=== PATIENT | female | born 1930 | race Hispanic/Latino ===

== ENCOUNTER 2017-06-05 10:07 | Inpatient (IN) | payer MEDICARE ==
[~2017-06-05] VITALS: Ht 152.4 cm; Wt 63.5 kg
[~2017-06-05 10:07] MED LIST: ALEN70TA47 PO; ALLO100T PO; CARV6.25 PO; CHOL50004 PO; DOXY100T2 PO; FURO20TA4 PO; LISI2.5T2 PO; MAGN400T29 PO; MULT-1258 PO; OMEG1CAP43 PO; POTA10CA44 PO; SPIR25TA PO; THYR15TA9 PO; UBID50TA3 PO
[2017-06-05 10:56] LABS: BASOPHILS % (AUTO) 1.2 % (0.0-5.0); EOSINOPHILS % (AUTO) 6.2 % (0.0-8.0); HEMATOCRIT 30.1 % (36-48); LYMPHOCYTES % (AUTO) 22.4 % (21.0-51.0); MEAN CORPUSCULAR HEMOGLOBIN 35.6 pg (27.0-33.0); MEAN CORPUSCULAR HGB CONC 35.3 g/dL (32.0-36.0); MEAN CORPUSCULAR VOLUME 100.7 fL (79-99); NEUTROPHILS % (AUTO) 59.2 % (40.0-77.0); PLATELET COUNT (AUTO) 146 K/uL (130-400); RED BLOOD CELL COUNT(AUTO) 2.99 MIL/uL (4.00-5.50); RED CELL DISTRIBUTION WIDTH 14.3 % (11.0-15.5)
[2017-06-05 11:42] LABS: INR 0.96 (0.85-1.15); PARTIAL THROMBOPLASTIN TIME 27.7 SEC (26.3-35.5); PROTHROMBIN TIME 10.1 SEC (9.6-11.6)
[2017-06-05 12:39] LABS: ALBUMIN 3.5 g/dL (3.5-5.0); BILIRUBIN,TOTAL 0.4 mg/dL (0.2-1.0); CREATINE KINASE MB 1.4 ng/mL (0.5-3.6); CREATININE 1.7 mg/dL (0.5-1.5)
[2017-06-05 12:48] LABS: POTASSIUM 6.2 mmol/L (3.5-5.1)
[2017-06-05] MEDS ORDERED: SODIUM BICARB 50MEQ 50ML VIAL ONE (12:57)
[2017-06-05] MEDS ORDERED: DEXTROSE 50%-WATER 50 ML DISP.SYRIN IV ONE (12:58)
[2017-06-05] MEDS ORDERED: INSULIN HUMULIN R 100 UNIT/ML 3ML ONE (12:58)
[2017-06-05] MEDS ORDERED: FUROSEMIDE 10 MG/ML 2ML VIAL ONE (12:58)
[2017-06-05] MEDS ORDERED: ENOXAPARIN SODIUM 60 MG/0.6 ML SQ ONE (14:20)
[2017-06-05] MEDS ORDERED: SODIUM CHLORIDE 0.9% 1000ML 1,000 ML IV SCH (14:50)
[2017-06-05] MEDS ORDERED: ONDANSETRON HCL 4 MG/2 ML VIAL IV PRN (15:00)
[2017-06-05] MEDS ORDERED: HYDRALAZINE HCL 20 MG/ML VIAL IV PRN (15:00)
[2017-06-05] MEDS ORDERED: LACTULOSE 20 GM/30 ML UDCUP PO PRN (15:00)
[2017-06-05] MEDS ORDERED: GUAIFENESIN-DM 200/20 MG 10 ML PO PRN (15:00)
[2017-06-05] MEDS ORDERED: MAG HYDROX/AL HYDROX/SIMETH ES 30 ML SUSP UDCUP PO PRN (15:00)
[2017-06-05] MEDS ORDERED: NITROGLYCERIN 0.4 MG SL TAB SL PRN (15:00)
[2017-06-05] MEDS ORDERED: MORPHINE SULFATE 2 MG/ML 1ML SYG IV PRN (15:00)
[2017-06-05] MEDS ORDERED: ACETAMINOPHEN 325 MG TAB PO PRN ×2 (15:00)
[2017-06-05] MEDS ORDERED: ACETAMINOPHEN-CODEINE 300/30MG TAB PO PRN (15:00)
[2017-06-05] MEDS ORDERED: SODIUM CHLORIDE 0.9% 1000ML 1,000 ML IV ONE (17:29)
[2017-06-05 19:15] VITALS: BP 136/63
[2017-06-05] MEDS: INSULIN HUMULIN R 100 UNIT/ML 3ML SQ SCH (21:00)
[2017-06-05] MEDS ORDERED: ENOXAPARIN SODIUM 60 MG/0.6 ML SQ SCH (21:00)
[2017-06-06] VITALS (7 sets, daily range): BP systolic 124–140; BP diastolic 53–73
[2017-06-06 04:36] LABS: HEMATOCRIT 27.7 % (36-48); MEAN CORPUSCULAR HEMOGLOBIN 34.3 pg (27.0-33.0); MEAN CORPUSCULAR HGB CONC 34.7 g/dL (32.0-36.0); MEAN CORPUSCULAR VOLUME 98.9 fL (79-99); PLATELET COUNT (AUTO) 141 K/uL (130-400); RED CELL DISTRIBUTION WIDTH 14.3 % (11.0-15.5); WHITE BLOOD COUNT (AUTO) 7.2 K/uL (4.8-10.8)
[2017-06-06 04:52] LABS: CREATININE 1.8 mg/dL (0.5-1.5); POTASSIUM 4.6 mmol/L (3.5-5.1)
[2017-06-06] MEDS: INSULIN HUMULIN R 100 UNIT/ML 3ML SQ SCH ×4 (06:42→21:00)
[2017-06-06] MEDS ORDERED: SODIUM CHLORIDE 0.9% 1000ML 1,000 ML IV SCH (07:53)
[2017-06-06] MEDS ORDERED: CEFTRIAXONE 1GM/D5W 50ML 50 ML IV SCH (08:00)
[2017-06-06] MEDS ORDERED: PRAV20TA4 PO (08:27)
[2017-06-06] MEDS ORDERED: FURO40TA5 PO (08:27)
[2017-06-06] MEDS ORDERED: LOSA25TA21 PO (08:27)
[2017-06-06] MEDS: THYROID 15 MG PO SCH (09:00)
[2017-06-06] MEDS: CEFTRIAXONE SODIUM 1 GM IVP SCH (09:38)
[2017-06-06] MEDS: ATORVASTATIN CALCIUM 10 MG TABLET PO SCH (09:39)
[2017-06-06] MEDS: LOSARTAN 50 MG TABLET PO SCH (09:39)
[2017-06-06] MEDS: FAMOTIDINE/PF 20 MG/2 ML VIAL IV SCH (09:39)
[2017-06-06] MEDS: CARVEDILOL 6.25 MG TABLET PO SCH ×2 (09:39→21:22)
[2017-06-06] MEDS: SPIRONOLACTONE 25 MG TAB PO SCH (09:39)
[2017-06-06] MEDS: APIXABAN 5 MG TABLET PO SCH ×2 (09:40→21:22)
[2017-06-06] MEDS: FUROSEMIDE 40 MG TABLET PO SCH (09:40)
[2017-06-06] MEDS: **HM** VIT D3 5000 UNITS PO SCH (12:00)
[2017-06-06] MEDS: COENZYME Q10 50 MG PO SCH (12:00)
[2017-06-06] MEDS: ALLOPURINOL 100 MG TABLET PO SCH (21:22)
[2017-06-07 03:24] VITALS: BP 117/57
[2017-06-07 06:30] LABS: HEMATOCRIT 26.1 % (36-48); MEAN CORPUSCULAR HEMOGLOBIN 35.1 pg (27.0-33.0); MEAN CORPUSCULAR HGB CONC 35.1 g/dL (32.0-36.0); MEAN CORPUSCULAR VOLUME 100.1 fL (79-99); PLATELET COUNT (AUTO) 140 K/uL (130-400); RED BLOOD CELL COUNT(AUTO) 2.61 MIL/uL (4.00-5.50); RED CELL DISTRIBUTION WIDTH 14.3 % (11.0-15.5); WHITE BLOOD COUNT (AUTO) 6.2 K/uL (4.8-10.8)
[2017-06-07 06:40] LABS: CREATININE 1.7 mg/dL (0.5-1.5); POTASSIUM 4.1 mmol/L (3.5-5.1)
[2017-06-07 07:30] VITALS: BP 125/59
[2017-06-07] MEDS: CEFTRIAXONE SODIUM 1 GM IVP SCH (08:55)
[2017-06-07] MEDS: FUROSEMIDE 40 MG TABLET PO SCH (08:56)
[2017-06-07] MEDS: ATORVASTATIN CALCIUM 10 MG TABLET PO SCH (08:56)
[2017-06-07] MEDS: LOSARTAN 50 MG TABLET PO SCH (08:56)
[2017-06-07] MEDS: APIXABAN 5 MG TABLET PO SCH ×2 (08:56→21:44)
[2017-06-07] MEDS: SPIRONOLACTONE 25 MG TAB PO SCH (08:56)
[2017-06-07] MEDS: FAMOTIDINE/PF 20 MG/2 ML VIAL IV SCH (08:56)
[2017-06-07] MEDS: CARVEDILOL 6.25 MG TABLET PO SCH ×2 (08:56→21:50)
[2017-06-07] MEDS: THYROID 15 MG PO SCH (09:00)
[2017-06-07 11:00] VITALS: BP 107/53
[2017-06-07] MEDS: **HM** VIT D3 5000 UNITS PO SCH (12:00)
[2017-06-07] MEDS: COENZYME Q10 50 MG PO SCH (12:00)
[2017-06-07 16:00] VITALS: BP 116/57
[2017-06-07 20:35] VITALS: BP 143/59
[2017-06-07] MEDS: ALLOPURINOL 100 MG TABLET PO SCH (21:44)
[2017-06-07 23:45] VITALS: BP 118/47
[2017-06-08 04:18] VITALS: BP 102/51
[2017-06-08 06:15] LABS: CREATININE 1.8 mg/dL (0.5-1.5); POTASSIUM 4.3 mmol/L (3.5-5.1)
[2017-06-08] MEDS ORDERED: APIX5TAB PO (07:28)
[2017-06-08] MEDS ORDERED: AMOX-426 PO (07:28)
[2017-06-08 08:00] VITALS: BP 101/45
[2017-06-08] MEDS: CEFTRIAXONE SODIUM 1 GM IVP SCH (08:41)
[2017-06-08] MEDS: APIXABAN 5 MG TABLET PO SCH (08:41)
[2017-06-08] MEDS: SPIRONOLACTONE 25 MG TAB PO SCH (08:41)
[2017-06-08] MEDS: CARVEDILOL 6.25 MG TABLET PO SCH (08:42)
[2017-06-08] MEDS: THYROID 15 MG PO SCH (08:43)
[2017-06-08] MEDS: FAMOTIDINE/PF 20 MG/2 ML VIAL IV SCH (08:43)
[2017-06-08] MEDS: LOSARTAN 50 MG TABLET PO SCH (08:43)
[2017-06-08] MEDS: ATORVASTATIN CALCIUM 10 MG TABLET PO SCH (08:43)
[2017-06-08] MEDS: FUROSEMIDE 40 MG TABLET PO SCH (08:43)
[2017-06-08 11:00] VITALS: BP 101/42
[2017-06-08] MEDS: **HM** VIT D3 5000 UNITS PO SCH (11:05)
[2017-06-08] MEDS: COENZYME Q10 50 MG PO SCH (11:05)
== END 2017-06-08 12:50 | disposition home or self-care (01) | DRG 300 ==
LOC: EDH 10:07 → EDHIP 14:00 → OBSVTOIN 14:00 → 3AH 18:30
PROVIDERS: ADMIT Internal Medicine; ATTEND Internal Medicine
DX: I82.411 Acute embolism and thrombosis of right femoral vein (principal); N17.9 Acute kidney failure, unspecified; E87.5 Hyperkalemia; L03.115 Cellulitis of right lower limb; I12.9 Hypertensive chronic kidney disease with stage 1 through stage 4 chronic kidney disease, or unspecified chronic kidney disease; I25.10 Atherosclerotic heart disease of native coronary artery without angina pectoris; E78.5 Hyperlipidemia, unspecified; N18.3 Chronic kidney disease, stage 3 (moderate); R73.03 Prediabetes; Z79.01 Long term (current) use of anticoagulants; Z90.710 Acquired absence of both cervix and uterus; Z83.3 Family history of diabetes mellitus; Z95.0 Presence of cardiac pacemaker
CPT/HCPCS: 36415; 71046; 80048; 80053; 82550; 82553; 84132; 84484; 85025; 85027; 85610; 85730; 93005; 93971; A4218; J0696; J1650; J1815; J1940; J3490; J7030; J7070

== ENCOUNTER 2017-07-12 15:01 | Emergency (ER) | payer MEDICARE ==
[~2017-07-12 15:01] MED LIST changes: -ALEN70TA47 PO; +AMOX-426 PO; +APIX5TAB PO; -DOXY100T2 PO; -FURO20TA4 PO; +FURO40TA5 PO; -LISI2.5T2 PO; +LOSA25TA21 PO; -MAGN400T29 PO; -MULT-1258 PO; -OMEG1CAP43 PO; -POTA10CA44 PO; +PRAV20TA4 PO
[2017-07-12 15:52] LABS: BASOPHILS % (AUTO) 0.9 % (0.0-5.0); EOSINOPHILS % (AUTO) 3.3 % (0.0-8.0); HEMATOCRIT 26.2 % (36-48); LYMPHOCYTES % (AUTO) 20.5 % (21.0-51.0); MEAN CORPUSCULAR HEMOGLOBIN 36.1 pg (27.0-33.0); MEAN CORPUSCULAR HGB CONC 35.6 g/dL (32.0-36.0); MEAN CORPUSCULAR VOLUME 101.4 fL (79-99); MONOCYTES % (AUTO) 10.3 % (3.0-13.0); PLATELET COUNT (AUTO) 148 K/uL (130-400); RED BLOOD CELL COUNT(AUTO) 2.58 MIL/uL (4.00-5.50); RED CELL DISTRIBUTION WIDTH 14.5 % (11.0-15.5); WHITE BLOOD COUNT (AUTO) 8.1 K/uL (4.8-10.8)
[2017-07-12 16:07] LABS: CREATININE 2.1 mg/dL (0.5-1.5); POTASSIUM 5.2 mmol/L (3.5-5.1)
[2017-07-12 16:14] LABS: APPEARANCE,URINE Clear (CLEAR); BILIRUBIN,URINE Negative (NEGATIVE); COLOR,URINE Yellow (YELLOW); GLUCOSE, URINE (UA) Negative (NEGATIVE); KETONES,URINE Negative (NEGATIVE); LEUKOCYTE ESTERASE ,URINE Negative (NEGATIVE); NITRATE,URINE Negative (NEGATIVE); OCCULT BLOOD,URINE Negative (NEGATIVE); PROTEIN,URINE Negative (NEGATIVE); UROBILINOGEN,URINE 0.2 mg/dL (0.2-1.0)
== END 2017-07-12 17:27 | disposition home or self-care (01) ==
LOC: EDH 15:01
DX: B34.9 Viral infection, unspecified (principal); I12.9 Hypertensive chronic kidney disease with stage 1 through stage 4 chronic kidney disease, or unspecified chronic kidney disease; N18.9 Chronic kidney disease, unspecified
CPT/HCPCS: 36415; 80048; 81003; 85025; 87804

== ENCOUNTER → 2018-04-28 | Outpatient (CLI) | payer MEDICARE ==
[~2018-04-28] MED LIST changes: +ACET1TAB25 PO; -AMOX-426 PO; -APIX5TAB PO; +DIPH1TAB PO; +DOCU100C33 PO; -FURO40TA5 PO; +GABA-531 PO; +IRON1CAP32 PO; -LOSA25TA21 PO; +MAGN400T29 PO; +MULT-1250 PO
== END | disposition home or self-care (01) ==
LOC: RAH 12:45
PROVIDERS: ATTEND Internal Medicine Hematology & Oncology
DX: I82.403 Acute embolism and thrombosis of unspecified deep veins of lower extremity, bilateral (principal)
CPT/HCPCS: 93970

== ENCOUNTER 2018-10-22 08:07 | Day surgery (SDC) | payer MEDICARE ==
[2018-10-21 11:54] LABS: BASOPHILS % (AUTO) 0.7 % (0.0-5.0); EOSINOPHILS % (AUTO) 3.5 % (0.0-8.0); HEMATOCRIT 24.6 % (36-48); LYMPHOCYTES % (AUTO) 17.4 % (21.0-51.0); MEAN CORPUSCULAR HEMOGLOBIN 34.9 pg (27.0-33.0); MEAN CORPUSCULAR HGB CONC 32.9 g/dL (32.0-36.0); MEAN CORPUSCULAR VOLUME 106.2 fL (79-99); MONOCYTES % (AUTO) 12.7 % (3.0-13.0); NEUTROPHILS % (AUTO) 65.7 % (40.0-77.0); PLATELET COUNT (AUTO) 47 K/uL (130-400); RED BLOOD CELL COUNT(AUTO) 2.32 MIL/uL (4.00-5.50); WHITE BLOOD COUNT (AUTO) 3.8 K/uL (4.8-10.8)
[2018-10-22 08:30] VITALS: BP 119/45
[2018-10-22] MEDS ORDERED: SODIUM CHLORIDE 0.9% 1000ML 1,000 ML IV ONE (09:44)
[2018-10-22 12:20] VITALS: BP 122/59
== END 2018-10-22 13:15 | disposition home or self-care (01) ==
LOC: DAH 08:07
PROVIDERS: ATTEND Internal Medicine Hematology & Oncology
DX: D64.81 Anemia due to antineoplastic chemotherapy (principal); I42.9 Cardiomyopathy, unspecified; F15.90 Other stimulant use, unspecified, uncomplicated; Z79.899 Other long term (current) drug therapy; Z83.3 Family history of diabetes mellitus
CPT/HCPCS: 36415; 36430; 85025; 86850; 86900; 86901; 86922; A4606; J7030; P9016

== ENCOUNTER → 2018-11-15 | Outpatient (CLI) | payer MEDICARE | END | disposition home or self-care (01) | LOC: RAH 12:02 | PROVIDERS: ATTEND Family Medicine | DX: I42.9 Cardiomyopathy, unspecified (principal); R22.32 Localized swelling, mass and lump, left upper limb | CPT/HCPCS: 93971 ==

== ENCOUNTER 2018-11-18 11:06 | Day surgery (SDC) | payer MEDICARE ==
[2018-11-18 12:00] VITALS: BP 112/51
[2018-11-18] MEDS ORDERED: SODIUM CHLORIDE 0.9% 1000ML 1,000 ML IV ONE (12:16)
[2018-11-18] MEDS ORDERED: DEXAMETHASONE SOD PHOSPHATE 10MG/ML 1ML VIAL ONE (13:15)
[2018-11-18] MEDS ORDERED: DiphenhydrAMINE HCL 50 MG/ML VIAL ONE (13:16)
[2018-11-18 14:10] VITALS: BP 123/51
--- NOTE | 2018-11-18 14:45 | NUR ---
patient discharged discharge instructions given to patient's son (forest). s/s to monitor and report were explained to son, and son verbalized understanding. patient taken to private vehicle via wheelchair and assited into car by lornea RN.
== END 2018-11-18 14:45 | disposition home or self-care (01) ==
LOC: EDH 11:06 → EDSTATUS 11:46 → DAH 11:53
PROVIDERS: ATTEND Emergency Medicine
DX: D69.6 Thrombocytopenia, unspecified (principal); C21.0 Malignant neoplasm of anus, unspecified; C20 Malignant neoplasm of rectum; Z79.899 Other long term (current) drug therapy; Z98.41 Cataract extraction status, right eye; Z98.42 Cataract extraction status, left eye; Z98.890 Other specified postprocedural states; Z90.710 Acquired absence of both cervix and uterus; Z83.3 Family history of diabetes mellitus
CPT/HCPCS: 36415; 36430; 86850; 86900; 86901; 86999; A4606; J1100; J1200; J7030; P9034

== ENCOUNTER → 2018-11-19 | Outpatient (CLI) | payer MEDICARE | END | disposition home or self-care (01) | LOC: RAH 11-12 09:05 | PROVIDERS: ATTEND Family Medicine | DX: I08.0 Rheumatic disorders of both mitral and aortic valves (principal); I31.3 Pericardial effusion (noninflammatory) | CPT/HCPCS: 93306 ==

== ENCOUNTER 2018-12-05 16:57 | Inpatient (IN) | payer MEDICARE ==
[~2018-12-05] VITALS: Ht 147.3 cm; Wt 55.3 kg
[2018-12-05] MEDS ORDERED: SODIUM CHLORIDE 0.9% 1000ML 1,000 ML IV ONE ×2 (17:39→20:13)
[2018-12-05 17:41] LABS: BASOPHILS % (AUTO) 0.6 % (0.0-5.0); HEMATOCRIT 30.2 % (36-48); LYMPHOCYTES % (AUTO) 10.6 % (21.0-51.0); MEAN CORPUSCULAR HEMOGLOBIN 35.5 pg (27.0-33.0); MEAN CORPUSCULAR HGB CONC 33.4 g/dL (32.0-36.0); MEAN CORPUSCULAR VOLUME 106.3 fL (79-99); NEUTROPHILS % (AUTO) 78.8 % (40.0-77.0); NUCLEATED RED BLOOD CELLS 0.1 % (0.0-0.19); PLATELET COUNT (AUTO) 17 K/uL (130-400); RED BLOOD CELL COUNT(AUTO) 2.85 MIL/uL (4.00-5.50); RED CELL DISTRIBUTION WIDTH 20.8 % (11.0-15.5); WHITE BLOOD COUNT (AUTO) 7.2 K/uL (4.8-10.8)
[2018-12-05 17:52] LABS: ALANINE AMINOTRANSFERASE 11 U/L (12-78); AMYLASE 20 U/L (25-115); ASPARTATE AMINOTRANSFERASE 36 U/L (10-37); BILIRUBIN,TOTAL 1.1 mg/dL (0.2-1.0); CARBON DIOXIDE 22 mmol/L (21-32); CHLORIDE 96 mmol/L (101-111); CREATININE 3.3 mg/dL (0.5-1.5); GLOMERULAR FILTR. RATE CALC 14 mL/min (>60); GLUCOSE,RANDOM 98 mg/dL (70-105); POTASSIUM 3.6 mmol/L (3.5-5.1); SODIUM SERUM 135 mmol/L (136-145); TOTAL PROTEIN, SERUM 6.8 g/dL (6.0-8.3)
[2018-12-05 17:53] LABS: LIPASE < 50 U/L (114-286)
[2018-12-05 17:54] LABS: UREA NITROGEN, BLOOD 91 mg/dL (7-18)
[2018-12-05 18:07] LABS: APPEARANCE,URINE Cloudy (CLEAR); BILIRUBIN,URINE Negative (NEGATIVE); COLOR,URINE Yellow (YELLOW); GLUCOSE, URINE (UA) Negative (NEGATIVE); KETONES,URINE Negative (NEGATIVE); LEUKOCYTE ESTERASE ,URINE Negative (NEGATIVE); NITRATE,URINE Negative (NEGATIVE); OCCULT BLOOD,URINE Small (NEGATIVE); PROTEIN,URINE Negative (NEGATIVE)
[2018-12-05 18:14] LABS: AMORPHOUS SEDIMENT,UR Moderate /LPF (None Seen); BACTERIA,URINE Few /HPF (None Seen); SQUAMOUS EPITHELIAL CELL,UR 0-2 /HPF (0-2); WBC,URINE 0-1 /HPF (0-1)
[2018-12-05 20:05] VITALS: BP 108/46
[2018-12-05] MEDS: SODIUM CHLORIDE 0.9% 1000ML 1,000 ML IV SCH (20:15)
[2018-12-05 23:00] VITALS: BP 117/53
--- NOTE | 2018-12-05 23:00 | NUR ---
ADMIT INITIAL ASSESSMENT DONE, PLEASE REFER TO CHART. NOTED SWELLING TO BLE RT > LT, NON-PITTING. DISCOLORATION NOTED TO RT LOWER LEG. PT COMPLAINTS OF BLE PAIN WITH MOVEMENT. ULCER TO COCCYX AREA NOTED. PRIMARY NURSE TOOK PICTURES, APPLIED BARRIER CREAM AND COVERED WITH ALLEVYN. RE-POSITIONED COMFORTABLY IN BED AND KEPT COMFORTABLE. PRIMARY NURSE MEDICATED PT WITH MORPHINE. IN FOR MORE CARE AND MANAGEMENT. Addendum: 12/06/18 at 0137 by DELMAR MARIE RN RN Amended: Links added.
[2018-12-05] MEDS: MORPHINE SULFATE 2 MG/ML 1ML SYG IVP PRN (23:09)
[2018-12-06] MEDS ORDERED: DICY20TA11 PO (01:19)
[2018-12-06] MEDS ORDERED: FURO40TA5 PO (01:19)
[2018-12-06] MEDS ORDERED: METO5TAB7 PO (01:19)
[2018-12-06] MEDS ORDERED: DOCU-272 PO (01:19)
[2018-12-06] MEDS ORDERED: MEGE40TA PO (01:19)
[2018-12-06] MEDS ORDERED: ACET1TAB25 PO (01:19)
[2018-12-06] MEDS ORDERED: LEVO50 PO (01:19)
[2018-12-06 03:00] VITALS: BP 128/62
[2018-12-06] MEDS: ONDANSETRON HCL 4 MG/2 ML VIAL IVP PRN ×3 (03:46→20:08)
[2018-12-06 04:39] LABS: HEMATOCRIT 29.3 % (36-48); MEAN CORPUSCULAR HEMOGLOBIN 35.6 pg (27.0-33.0); MEAN CORPUSCULAR HGB CONC 33.5 g/dL (32.0-36.0); MEAN CORPUSCULAR VOLUME 106.2 fL (79-99); PLATELET COUNT (AUTO) 19 K/uL (130-400); RED BLOOD CELL COUNT(AUTO) 2.76 MIL/uL (4.00-5.50); RED CELL DISTRIBUTION WIDTH 21.2 % (11.0-15.5); WHITE BLOOD COUNT (AUTO) 7.6 K/uL (4.8-10.8)
[2018-12-06 05:02] LABS: MAGNESIUM 1.4 mg/dL (1.80-2.40); PHOSPHORUS 4.7 mg/dL (2.5-4.9); POTASSIUM 3.4 mmol/L (3.5-5.1); URIC ACID 18.9 mg/dL (2.6-7.2)
[2018-12-06] MEDS: SODIUM CHLORIDE 0.9% 1000ML 1,000 ML IV SCH ×2 (06:15→16:57)
[2018-12-06 07:58] VITALS: BP 127/57
[2018-12-06] MEDS: FOLIC ACID/VITAMIN B COMP W-C 1 MG CAP/TAB PO SCH (09:34)
[2018-12-06 12:00] VITALS: BP 119/58
[2018-12-06] MEDS: MORPHINE SULFATE 2 MG/ML 1ML SYG IVP PRN (13:28)
--- NOTE | 2018-12-06 15:31 | NUR ---
RD NOTIFICATION Primary Diagnosis: Acute Renal Failure. Hx: Stage 4 anal cancer, chemotherapy, poor appetite, weight loss. Current diet: Regular. BMI is 23; classified as overweight. Meds: Zofran, Vitamin B complex, Vitamin C, Folic acid. Labs: BUN 87, CRE 3, GFR 16, Uric acid 18.9, Amylase 20, Lipase <50, K 3.4, Cl 97, Mg 1.4, Alkaline phosphatase 186, Alb 3.0. Pt has poor appetite and has not been eating well as per pt and family. LBM: three days ago as per pt. Skin: non-pitting edema on bilateral lower extremity, ulcer to coccyx region. Pt states she has lost a lot of weight but cannot recall how much she weighed before. Pt says she has never tried Ensure before but is willing to try Vanilla and [place] flavors if she has no appetite for food. RD recommends to continue current diet. Offer Ensure (Vanilla or strawberry flavors only) at all meals. Pt stated she is having difficulty and pain when swallowing. RD recommends to consult PAPER CUP MACHINE TENDER. RD will continue to monitor and follow up as needed. Please notify RD if any other nutritional concerns arise. Thank you. Addendum: 12/06/18 at [address] Amended: Links added.
[2018-12-06 16:00] VITALS: BP 116/39
[2018-12-06] MEDS ORDERED: DICYCLOMINE HCL 20 MG TAB PO PRN (16:30)
[2018-12-06] MEDS ORDERED: ACETAMINOPHEN-CODEINE 300/30MG TAB PO SCH (16:30)
--- NOTE | 2018-12-06 16:53 | NUR ---
MEDICATED WITH TYLENOL #3 PO AND SOON PATIENT SWALLOWED THE PILL SHE EXPERIENCED EMESIS OF ABOUT 250ML OF GREEN BILE. CHARGE NURSE WAS CALLED TO WITNESS MEDICATION IN THE BILE CONTENT.
[2018-12-06] MEDS ORDERED: MAGNESIUM 2GM PREMIX 50ML 50 ML IV ONE (17:15)
--- NOTE | 2018-12-06 17:47 | NUR ---
cm note met with patient and with son, resides with spouse, pt states able to sit up to w/c, has provider 2-3hrs daily. has HH in place unable to recall name of agency. states family takes to md as needed. dc plan is back to home. Addendum: 12/06/18 at 1751 by RODRICK LOCKE CM Amended: Links added.
[2018-12-06 20:00] VITALS: BP 113/46
[2018-12-06] MEDS: FUROSEMIDE 40 MG TABLET PO SCH (20:14)
[2018-12-06] MEDS: MEGESTROL 400 MG/10 ML UDCUP PO SCH (20:14)
--- NOTE | 2018-12-06 21:05 | NUR ---
Nursing Note Spoke with Dr. Crain and he gave me an order for duonebs every 4 hours scheduled for the pt.
--- NOTE | 2018-12-06 22:00 | NUR ---
Nursing Note Cream applied to pt shaun area, Allyvn pad applied to buttocks
[2018-12-06] MEDS: IPRATROPIUM/ALBUTEROL SULFATE 3 ML SOLUTION IH SCH (22:01)
[2018-12-07] VITALS: BP 113/50
[2018-12-07] MEDS: ONDANSETRON HCL 4 MG/2 ML VIAL IVP PRN ×3 (01:19→09:32)
[2018-12-07] MEDS: IPRATROPIUM/ALBUTEROL SULFATE 3 ML SOLUTION IH SCH ×6 (02:00→22:04)
[2018-12-07] MEDS: SODIUM CHLORIDE 0.9% 1000ML 1,000 ML IV SCH ×3 (03:44→22:23)
[2018-12-07 04:00] VITALS: BP 96/44
[2018-12-07 05:38] LABS: BASOPHILS % (AUTO) 0.5 % (0.0-5.0); EOSINOPHILS % (AUTO) 0.2 % (0.0-8.0); HEMATOCRIT 28.5 % (36-48); LYMPHOCYTES % (AUTO) 4.9 % (21.0-51.0); MEAN CORPUSCULAR HEMOGLOBIN 36.4 pg (27.0-33.0); MEAN CORPUSCULAR HGB CONC 33.4 g/dL (32.0-36.0); MEAN CORPUSCULAR VOLUME 108.8 fL (79-99); MONOCYTES % (AUTO) 6.4 % (3.0-13.0); PLATELET COUNT (AUTO) 18 K/uL (130-400); RED BLOOD CELL COUNT(AUTO) 2.62 MIL/uL (4.00-5.50); RED CELL DISTRIBUTION WIDTH 21.4 % (11.0-15.5); WHITE BLOOD COUNT (AUTO) 9.3 K/uL (4.8-10.8)
[2018-12-07 06:01] LABS: CREATININE 3.2 mg/dL (0.5-1.5); MAGNESIUM 1.9 mg/dL (1.80-2.40); POTASSIUM 3.7 mmol/L (3.5-5.1)
[2018-12-07 07:55] VITALS: BP 98/42
[2018-12-07] MEDS: MEGESTROL 400 MG/10 ML UDCUP PO SCH ×2 (09:32→22:23)
[2018-12-07] MEDS: METOLAZONE 2.5 MG TABLET PO SCH (09:32)
[2018-12-07] MEDS: FOLIC ACID/VITAMIN B COMP W-C 1 MG CAP/TAB PO SCH (09:32)
[2018-12-07] MEDS: ALLOPURINOL 100 MG TABLET PO SCH (09:32)
[2018-12-07] MEDS: DOCUSATE SODIUM 100 MG CAP PO SCH (09:32)
[2018-12-07] MEDS: FUROSEMIDE 40 MG TABLET PO SCH ×2 (09:32→22:23)
[2018-12-07] MEDS: LEVOTHYROXINE 50 MCG TABLET PO SCH (09:42)
[2018-12-07] MEDS ORDERED: DEXAMETHASONE 10MG/ML 1ML VIAL 0 MG in SODIUM CHLORIDE 0.9% 50 ML IV SCH (11:30)
[2018-12-07 12:00] VITALS: BP 120/60
[2018-12-07] MEDS ORDERED: SODIUM CHLORIDE 0.9% 250 ML IV ONE (15:27)
[2018-12-07] MEDS ORDERED: DEXAMETHASONE SOD PHOSPHATE 10MG/ML 1ML VIAL IVP SCH (15:30)
[2018-12-07 16:00] VITALS: BP 91/51
[2018-12-07] MEDS: DiphenhydrAMINE HCL 50 MG/ML VIAL IV SCH (16:04)
--- NOTE | 2018-12-07 18:30 | NUR ---
TRANSFUSE PLATELETS TRANSFUSE ON UNIT OF SINGLE DONOR PLATELETS. STARTED AT 1625 HOURS AND ENDED AT 1820 HOURS. PATIENT TOLERATED WITHOUT INCIDENT, VITAL SIGNS WITHIN NORMAL LIMITS.
[2018-12-07 20:00] VITALS: BP 130/60
--- NOTE | 2018-12-07 23:29 | NUR ---
Paged Doctor Paged Dr. Crain about pt's heart rate, waiting for call back
--- NOTE | 2018-12-07 23:31 | NUR ---
Doctor Order Dr. Crain stated to put pt on telemetry to watch her when informed about heart rate and current condition
[2018-12-08] VITALS (51 sets, daily range): BP systolic 66–136; BP diastolic 34–77
[2018-12-08] MEDS: IPRATROPIUM/ALBUTEROL SULFATE 3 ML SOLUTION IH SCH ×4 (01:55→13:55)
[2018-12-08 05:53] LABS: BASOPHILS % (AUTO) 0.1 % (0.0-5.0); HEMATOCRIT 25.3 % (36-48); LYMPHOCYTES % (AUTO) 2.6 % (21.0-51.0); MEAN CORPUSCULAR HEMOGLOBIN 36.2 pg (27.0-33.0); MEAN CORPUSCULAR HGB CONC 34.1 g/dL (32.0-36.0); MEAN CORPUSCULAR VOLUME 106.1 fL (79-99); MONOCYTES % (AUTO) 10.9 % (3.0-13.0); NEUTROPHILS % (AUTO) 86.4 % (40.0-77.0); NUCLEATED RED BLOOD CELLS 0.1 % (0.0-0.19); PLATELET COUNT (AUTO) 80 K/uL (130-400); RED BLOOD CELL COUNT(AUTO) 2.38 MIL/uL (4.00-5.50); RED CELL DISTRIBUTION WIDTH 21.8 % (11.0-15.5); WHITE BLOOD COUNT (AUTO) 6.4 K/uL (4.8-10.8)
[2018-12-08 06:04] LABS: CREATININE 3.5 mg/dL (0.5-1.5); MAGNESIUM 1.8 mg/dL (1.80-2.40); POTASSIUM 3.4 mmol/L (3.5-5.1); URIC ACID 17.6 mg/dL (2.6-7.2)
[2018-12-08] MEDS: SODIUM CHLORIDE 0.9% 1000ML 1,000 ML IV SCH ×3 (08:15→18:36)
[2018-12-08] MEDS: DOCUSATE SODIUM 100 MG CAP PO SCH (09:00)
[2018-12-08] MEDS: METOLAZONE 2.5 MG TABLET PO SCH (11:32)
[2018-12-08] MEDS: FOLIC ACID/VITAMIN B COMP W-C 1 MG CAP/TAB PO SCH (11:32)
[2018-12-08] MEDS: LEVOTHYROXINE 50 MCG TABLET PO SCH (11:32)
[2018-12-08] MEDS: ALLOPURINOL 100 MG TABLET PO SCH (11:33)
[2018-12-08] MEDS: FUROSEMIDE 40 MG TABLET PO SCH ×2 (11:33→21:28)
[2018-12-08] MEDS: MEGESTROL 400 MG/10 ML UDCUP PO SCH ×2 (11:46→21:28)
[2018-12-08] MEDS: DiphenhydrAMINE HCL 50 MG/ML VIAL IV SCH (11:46)
--- NOTE | 2018-12-08 14:08 | NUR ---
RT RECOMMENDATION/ MD ORDER RECEIVED RECOMMENDATION FROM RT TO DECREASE FREQUENCY OF NEB TREATMENTS FROM Q4 TO Q6. SPOKE TO DENITA AT DR PRICE OFFICE- NEW ORDER TO CARRY OUT RECOMMENDATION. CARRIED OUT. WILL CONT TO MONITOR
--- NOTE | 2018-12-08 14:43 | NUR ---
RD Follow Up Note Pt with Advanced Stage IV metastatic CA, Anorexia, FTT. Pt with Ensure in place. Pt having BM at time of visit. Pt family member states Pt took a couple spoons of oatmeal this AM, some Jello this afternoon. Multiple soups and beverages present at time of visit. Pt with appetite stimulant in place. Recommend soft diet as per family member request. Also recommend Non-dialysis diet secondary to altered renal labs. Pt monitored labs: K 3.4, CO2 16, BUN 94, Cr 3.5, GFR 13, Glu 163, Uric Acid 17.6, P 5.0, T. Bili 1.1, ALT 11, Alk 186, Alb 3.0, Amylase 20, Lipase <50. RD to continue to monitor. Please notify RD as additional nutrition concerns arise. Thank you. Addendum: 12/08/18 at [address] Amended: Links added.
[2018-12-08] MEDS ORDERED: METOPROLOL TARTRATE 1 MG/ML 5ML VIAL IV ONE (14:53)
--- NOTE | 2018-12-08 15:07 | NUR ---
DR REYES ROUNDED NEW ORDER FOR CBC, BMP, MAG TOMORROW 12/09
[2018-12-08] MEDS: METOPROLOL TARTRATE 1 MG/ML 5ML VIAL IV SCH ×3 (15:15→15:25)
--- NOTE | 2018-12-08 15:32 | NUR ---
TRANSFER TO PCCU ROOM 224 Received call from Quality Controller Tech at 1432 that patient was having increase in heart rate to the 130s. At 1437 received report that patient was increasing to the 140s then 160s in Afib with RVR. Dr. Crain was called at 1440 an received orders to transfer to PCCU and consult on-call for Cardiology. Leaf Binner notified. Dr. Mejia was called at 1450 for consult and ordered metoprolol 5mg IV X 3 to get HR to <[address] Mejia was made aware that BP was 107/44, but stated to administer the metoprolol as ordered regardless. Administered 5mg of IV metoprolol X 1 at 1500. Report was called by charge nurse Tricia and patient was transfered to room 224 in no distress but she said she was feeling tired and overall, in general not good.
--- NOTE | 2018-12-08 15:32 | NUR ---
RECEIVED TRANSFER TO ROOM 224 VIA BED ACCOMPANIED BY OMER CONNELL. PT. RESTING IN BED IN RIGHT SIDE-LYING POSITION, RESP.'S EVEN AND UNLABORED. DENIES ANY C/O SOB, BUT DOES "NOT FEEL WELL." CALL LIGHT WITHIN REACH, VERBALIZED ABILITY TO USE. BED LOW, SIDE RAILS UP X3.
--- NOTE | 2018-12-08 15:55 | NUR ---
NOTIFIED DR. CHAVEZ RE:PT. WITH AFIB W/RVR HR140'S-150'S AND SBP-85. ORDERS RECEIVED.
[2018-12-08] MEDS ORDERED: ESMOLOL HCL 2500 MG/NACL 250 ML IV PRN (16:00)
--- NOTE | 2018-12-08 16:05 | NUR ---
[facility] 130-160'S, AAOX2, REORIENTED TO TIME, PENDING ESMOLOL DRIP TO BE STARTED, PER DR CHAVEZ, SBP 90'S
--- NOTE | 2018-12-08 16:30 | NUR ---
INSERTED EXTRA IV TO RIGHT ANTERIOR FOREARM, 20 GA, X1 ATTEMPT.
[2018-12-08] MEDS ORDERED: DIGOXIN 250 MCG/ML 2ML AMP IV STA (16:57)
[2018-12-08] MEDS ORDERED: DIGOXIN 250 MCG/ML 2ML AMP ONE (16:58)
[2018-12-08] MEDS ORDERED: ESMOLOL HCL IV PRN (17:00)
[2018-12-08] MEDS ORDERED: NACL IV PRN (17:00)
--- NOTE | 2018-12-08 17:00 | NUR ---
DR PRICE AT BEDSIDE, MD STATES BEING AWARE ABOUT CT RESULTS AND STATES ALREADY AWARE ABOUT METASTASES TO LIVER AND LUNGS, PT'S SON AT BEDSIDE
[2018-12-08] MEDS ORDERED: IPRATROPIUM/ALBUTEROL SULFATE 3 ML SOLUTION IH SCH (18:00)
--- NOTE | 2018-12-08 18:26 | NUR ---
HELD ESMOLOL DRIP AT THIS TIME, CURRENT B/P 74/44, AFIB 130, O2 SAT TA 100%, NOTIFIED DR SCOTT MD ORDERED TO DISCONTINUE ESMOLOL DRIP AND TO ADMINISTER 250 ML NORMAL SALINE BOLUS, INITIATED AT THIS TIME
[2018-12-08] MEDS ORDERED: SODIUM CHLORIDE 0.9% 1000ML 1,000 ML IV SCH (18:30)
--- NOTE | 2018-12-08 18:40 | NUR ---
250 NS BOLUS COMPLETED AT THIS TIME, CURRENT B/P 96/53, AFIB 140, O2 SAT AT 100%, PER DR CHAVEZ, HE'LL BE IN ABOUT 30 MINS TO EVALUATE PATIENT'S SONS X2 AT BEDSIDE PENDING TO DECIDE REGARDING DNR STATUS.
--- NOTE | 2018-12-08 19:15 | NUR ---
REPORT GIVEN TO OMER NAM, PATIENT IS NOW OFFICIALLY DNR STATUS, DR CHAVEZ UPDATED ON PT'S STATUS INCLUDING LATEST SBP IN THE 70'S, O2 SAT AT 100%, INSTRUCTED TO CHECK WITH DR PRICE REGARDING POSSIBLE CONSULT FOR CRITICAL CARE, NIGHT NURSE TO FOLLOW UP WITH DR PRICE
[2018-12-08] MEDS ORDERED: NOREPINEPHRINE BITARTRATE 1 MG/1 ML ML IV ONE (19:54)
[2018-12-08] MEDS ORDERED: SODIUM CHLORIDE 0.9% 250 ML IV ONE (19:55)
--- NOTE | 2018-12-08 20:06 | NUR ---
CONSULT SPOKE WITH DR KERN. NEW CONSULT FOR [facility] FOR HYPOTENSION. DR CHAVEZ AT THE BEDSIDE ORDERS RECEIVED FOR LEVOPHED DRIP
[2018-12-08] MEDS ORDERED: NOREPINEPHRINE 4MG/NS 250ML 250 ML IV PRN (20:15)
--- NOTE | 2018-12-08 21:15 | NUR ---
HEART RATE 2113 PATIENT CONVERTED TO V-PACED WITH UNDERLYING RHYTHM OF SINUS TACHYCARDIA. BLOOD PRESSURE IMPROVED. TITRATING DOWN NOREPINEPHRINE
--- NOTE | 2018-12-08 21:34 | NUR ---
CONSULT RETURN PAGE FROM SWAPNIL NUGENT. FOR BPC. UPDATED ON PATIENT CONDITION. PATIENT CONVERTED UNDERLYING RHYTHM OF SINUS TACHYCARDIA AND BLOOD PRESSURE IMPROVED TO SBP 130'S. PATIENT CURRENTLY ON ESMOLOL DRIP AND NOREPINEPHRINE HAS BEEN TURNED OFF.
[2018-12-09] VITALS (84 sets, daily range): BP systolic 80–123; BP diastolic 34–95
[2018-12-09] MEDS: SODIUM CHLORIDE 0.9% 1000ML 1,000 ML IV SCH ×2 (02:39→11:25)
[2018-12-09 03:53] LABS: HEMATOCRIT 24.2 % (36-48); MEAN CORPUSCULAR HEMOGLOBIN 36.4 pg (27.0-33.0); MEAN CORPUSCULAR HGB CONC 34.1 g/dL (32.0-36.0); MEAN CORPUSCULAR VOLUME 106.9 fL (79-99); NUCLEATED RED BLOOD CELLS 0.1 % (0.0-0.19); PLATELET COUNT (AUTO) 51 K/uL (130-400); RED BLOOD CELL COUNT(AUTO) 2.26 MIL/uL (4.00-5.50); RED CELL DISTRIBUTION WIDTH 21.8 % (11.0-15.5); WHITE BLOOD COUNT (AUTO) 4.6 K/uL (4.8-10.8)
[2018-12-09 04:11] LABS: CREATININE 3.6 mg/dL (0.5-1.5); MAGNESIUM 1.7 mg/dL (1.80-2.40); POTASSIUM 3.3 mmol/L (3.5-5.1)
[2018-12-09] MEDS ORDERED: ESMOLOL HCL 2500 MG/NACL 250 ML IV PRN (07:00)
[2018-12-09] MEDS: MEGESTROL 400 MG/10 ML UDCUP PO SCH (08:09)
[2018-12-09] MEDS: ALLOPURINOL 100 MG TABLET PO SCH (08:10)
[2018-12-09] MEDS: LEVOTHYROXINE 50 MCG TABLET PO SCH (08:10)
[2018-12-09] MEDS: FOLIC ACID/VITAMIN B COMP W-C 1 MG CAP/TAB PO SCH (08:10)
[2018-12-09] MEDS: DOCUSATE SODIUM 100 MG CAP PO SCH (08:10)
[2018-12-09] MEDS ORDERED: POTASSIUM CHLORIDE 10MEQ/100ML 10 MEQ/100 ML ML IV SCH (08:30)
[2018-12-09] MEDS ORDERED: EPINEPHRINE 2 MG in DEXTROSE 5%-WATER 250 ML IV PRN (08:30)
[2018-12-09] MEDS ORDERED: MAGNESIUM 2GM PREMIX 50ML 50 ML IV SCH (08:30)
[2018-12-09] MEDS ORDERED: POTASSIUM CHLORIDE 10 MEQ in SODIUM CHLORIDE 0.9% 50 ML IV PRN (08:45)
[2018-12-09] MEDS ORDERED: POTASSIUM CHLORIDE 20MEQ/100ML 100 ML IV PRN (08:45)
[2018-12-09] MEDS ORDERED: POTASSIUM CHLORIDE 20MEQ/100ML 100 ML IV SCH (09:15)
[2018-12-09] MEDS ORDERED: PHENYLEPHRINE HCL 50 MG in SODIUM CHLORIDE 0.9% 250 ML IV PRN (12:15)
[2018-12-09] MEDS ORDERED: HYDROMORPHONE 4MG/ML 1ML VIAL IVP PRN (12:15)
[2018-12-09] MEDS: CEFEPIME HCL 1 GM VIAL IVP SCH (12:41)
[2018-12-09] MEDS: DOXYCYCLINE 100MG+NS 250ML 250 ML IV SCH (12:41)
[2018-12-09] MEDS: METRONIDAZOLE 500MG/100ML BAG 100 ML IV SCH ×2 (14:48→21:24)
[2018-12-09] MEDS: DIPHENOXYLATE HCL/ATROPINE 2.5/0.025 MG TAB PO PRN ×2 (18:46→22:28)
[2018-12-09] MEDS ORDERED: AMIODARONE HCL 150 MG in DEXTROSE 5%-WATER 100 ML IV PRN (22:00)
[2018-12-09] MEDS ORDERED: AMIODARONE HCL 900 MG in DEXTROSE 5%-WATER 500 ML IV PRN (22:00)
[2018-12-10] VITALS (33 sets, daily range): BP systolic 78–118; BP diastolic 31–77
[2018-12-10] MEDS: CEFEPIME HCL 1 GM VIAL IVP SCH ×2 (00:24→11:49)
[2018-12-10] MEDS: DOXYCYCLINE 100MG+NS 250ML 250 ML IV SCH ×2 (00:24→15:00)
[2018-12-10] MEDS: SODIUM CHLORIDE 0.9% 1000ML 1,000 ML IV SCH (00:25)
[2018-12-10 03:39] LABS: HEMATOCRIT 24.8 % (36-48); MEAN CORPUSCULAR HGB CONC 33.3 g/dL (32.0-36.0); MEAN CORPUSCULAR VOLUME 108.2 fL (79-99); NUCLEATED RED BLOOD CELLS 0.3 % (0.0-0.19); PLATELET COUNT (AUTO) 37 K/uL (130-400); RED BLOOD CELL COUNT(AUTO) 2.29 MIL/uL (4.00-5.50)
[2018-12-10 03:52] LABS: INR 1.17 (0.85-1.15); PARTIAL THROMBOPLASTIN TIME 41.4 SEC (26.3-35.5); PROTHROMBIN TIME 12.2 SEC (9.6-11.6)
[2018-12-10 04:27] LABS: ALBUMIN 2.2 g/dL (3.5-5.0); BILIRUBIN,TOTAL 0.8 mg/dL (0.2-1.0); CREATININE 3.2 mg/dL (0.5-1.5); MAGNESIUM 1.8 mg/dL (1.80-2.40); PHOSPHORUS 3.7 mg/dL (2.5-4.9); POTASSIUM 3.3 mmol/L (3.5-5.1); THYROID STIMULATING HORMONE 3.4 uIU/mL (0.36-3.74); TOTAL PROTEIN, SERUM 5.2 g/dL (6.0-8.3)
[2018-12-10 04:28] LABS: ABG BASE EXCESS -8.5 mmol/L (-2.0-3.0); ABG HCO3 15.2 mmol/L (21.0-28.0); ABG OXYGEN SATURATION 96.7 % (95.0-99.0); ABG PCO2 28 mmHg (32-45)
--- NOTE | 2018-12-10 05:01 | NUR ---
Benchmark notification Mazin Gee Notified of abg results, and lactic acid. no orders received, will continue to monitor pt closely.
[2018-12-10] MEDS: METRONIDAZOLE 500MG/100ML BAG 100 ML IV SCH ×2 (05:44→15:00)
[2018-12-10] MEDS ORDERED: POTASSIUM CHLORIDE 10% ELIXIR 20 MEQ/15 ML UDCUP PO SCH (07:45)
[2018-12-10] MEDS ORDERED: LEVOTHYROXINE 50 MCG TABLET ONE (08:14)
[2018-12-10] MEDS ORDERED: LEVOTHYROXINE 50 MCG TABLET PO SCH (08:15)
[2018-12-10] MEDS: FOLIC ACID/VITAMIN B COMP W-C 1 MG CAP/TAB PO SCH (08:22)
[2018-12-10] MEDS: ALLOPURINOL 100 MG TABLET PO SCH (08:22)
[2018-12-10] MEDS: DOCUSATE SODIUM 100 MG CAP PO SCH (08:22)
--- NOTE | 2018-12-10 10:35 | NUR ---
HOSPICE Sw contacted by nurse Radford. Last night pt requesting nurse to stop everything, pt stated she was tired and ready to go. Pt requesting defibrillator be turned off. Family made pt DNR. Sw met with pt who is alert and oriented, again stated that she was tired and did not want to do this anymore.Pt states she is a lot of pain from tumor under her arm. Pt c/o severe pain all over. SW met with pt's children and discussed pt's wishes. Family states that they will honor pt's wishes to stop everything, turn off defibrillator and admit to hospice if that is what pt wants. Famly wants pt to sign consent. Sw informed nurse Radford of above.
[2018-12-10] MEDS ORDERED: HYDROMORPHONE 1 MG/1 ML AMP ONE (11:22)
[2018-12-10] MEDS: ONDANSETRON HCL 4 MG/2 ML VIAL IVP PRN ×2 (11:48→17:38)
--- NOTE | 2018-12-10 13:45 | NUR ---
GIP ANNIE Sw contacted by Dr Paras Radford agreed with pt request. Sw met with pt and family and discussed pt's wishes. Pt stated that she was tired and was ready to go. Pt stated that she has told her family this already and did not need to discuss it with them. Pt signed consent for referral to [facility] for [place]. If she does not meet criteria, hospice to assist with plan B. Karol met with pt and family. Karol Ball, RN to evaluate pt for GIP. Karol not sure pt will qualify, but family is aware and will have plan b.
--- NOTE | 2018-12-10 15:04 | NUR ---
[facility] consult Patient assessed as ordered. Patient with stage II pressure area to sacrum. Allevyn life foam already in place. Zinc oxide being applied to perineum for irritation caused by multiple loose stools. [facility] recommendations submitted. Addendum: 12/10/18 at 1507 by JES TESFAYE RN/ Amended: Links added.
--- NOTE | 2018-12-10 15:21 | NUR ---
RD Follow Up Note Pt with GI Soft/Ola, Renal Non-Dialysis Diet in place. Pt continues with Poor PO intake (0%). Megace discontinued as per EMR. Pt with Ensure TID in place. Rec to add 30mL ProMod TID. Pt LBM 12/09/18. Pt monitored labs: K 3.3, CO2 17, BUN 93, Cr 3.2, GFR 15, Glu 113, Ca 8.4, ALT 11, Alb 2.2. Family visiting at time of visit. RD to continue to monitor. Please notify RD as additional nutrition concerns arise. Thank you. Addendum: 12/10/18 at [address] Amended: Links added.
--- NOTE | 2018-12-10 17:14 | NUR ---
INPT HOSPICE TO RE EVAL IN AM Sw recd call from [place]. Pt to be re evaluated in , pt does not meet criteria for inpt at this time.
[2018-12-10] MEDS: HYDROMORPHONE 1 MG/1 ML AMP IVP PRN (17:33)
[2018-12-10] MEDS ORDERED: HONEY 1 APPL/ML TUBE TP PRN (18:30)
--- NOTE | 2018-12-10 21:30 | NUR ---
REPORT GIVEN TO PATIENT TRANSFERRED TO [address] [place] [address] Addendum: 12/10/18 at 2258 by TORI ANDEROSN RN RN [facility]
[2018-12-11] VITALS: BP 105/37
[2018-12-11 04:00] VITALS: BP 100/37
[2018-12-11 08:00] VITALS: BP 110/53
[2018-12-11 12:05] VITALS: BP 106/54
[2018-12-11 19:00] VITALS: BP 117/47
[2018-12-12] VITALS: BP 110/50
[2018-12-12 04:00] VITALS: BP 115/45
[2018-12-12 07:44] VITALS: BP 101/37
[2018-12-12 12:00] VITALS: BP 91/37
[2018-12-12] MEDS: HYDROMORPHONE 1 MG/1 ML AMP IVP PRN (13:00)
[2018-12-12 16:00] VITALS: BP 112/58
[2018-12-12 19:00] VITALS: BP 123/53
[2018-12-13 07:00] VITALS: BP 113/43
[2018-12-13] MEDS: HYDROMORPHONE 1 MG/1 ML AMP IVP PRN ×2 (13:24→22:12)
[2018-12-13 20:00] VITALS: BP 98/48
--- NOTE | 2018-12-14 01:35 | NUR ---
DCP Sw contacted by KAI, Dr Crain met with pt and family and pt is ready for dc. Family wanting pt to stay and he told them that she does not qualify for GIP. Megan met with pt and family. Pt sitting in bed eating. SW discussed dcp. Informed family that pt does not meet criteria for GIP and was denied with both assessments done. Family wanting to private pay [facility] so pay can stay. Informed they can speak to a financial counselor for pricing. Discussed options of NH or hospice house. Family wanting a private room so they can stay with pt. Informed them, there are NHs that will accommodate that. Family wants to discuss and decide Megan notified Karol Lilly of this, she will follow up with family Addendum: 12/15/18 at 0820 by KATINA HERNANDEZ TIME CORRECTION: THIS VISIT TOOK PLACE at 13:45pm (1:35pm) After Dr Crain rounded on pt
[2018-12-14 08:17] VITALS: BP 113/47
--- NOTE | 2018-12-14 09:15 | NUR ---
f/u with Vijaya Sw spoke to Karol [phone] at [facility]. Pt was re assessed and still does not meet criteria. Family states home is not an option. [facility] to assist with placement at hospice home. Karol to contact family and work on placement. Waiting on response from [facility]
--- NOTE | 2018-12-14 09:58 | NUR ---
ES with placement Recd call from Karol. She spoke to daughter and they are in agreement with placement. Grand daughter has name of place. [facility] Pt on waiting list. Karol waiting on daughter call back
[2018-12-14] MEDS: HYDROMORPHONE 1 MG/1 ML AMP IVP PRN ×2 (14:48→19:39)
--- NOTE | 2018-12-14 15:41 | NUR ---
RD Follow Up Pt family requesting comfort care measures as per EMR. Pt tolerating Soft/[place], HH diet with no report of GI distress. Poor PO intake at 25%. Ensure, TID in place. Pt also with 30mL ProMod in place. Altered renal labs (BUN 93, Cr 3.2, GFR 15); Recommend Renal Non-dialysis diet modifier. Pt LBM 12/13/18. Noted 2+ BLE pitting edema. RD to continue to monitor. Please notify RD as nutritional concerns arise. Thank you. Addendum: 12/14/18 at [address] Amended: Links added.
--- NOTE | 2018-12-14 19:52 | NUR ---
NURSING NOTE Patient has been medicated twice for pain. Spoke to daughter and grand-daughter. Both verbalized that they feel satisfied with the pain management patient is getting and they do not feel patient needs any more frequency of pain medication administration. Both stated patient's pain is mostly when she is turned and her pain is confined to her back and her bottom. Patient is turned as requested by family and by patient. Legs continued edematous, and also her left arm. Patient's family is considering the choices for placement. They have talked to Director Sawyer and daughter verbalized at this time patient would like to stay in hospital for hospice care but same daughter states patient does not qualify for hospital hospice. Family and patient are still pending to make a decision about where patient will receive her hospice care. At this time their request is an anti-itch topical medication and a lidocaine-based cream for her bottom. Will page Dr. Crain for orders. Patient continues alert and oriented; frail-looking. Family involved in care and communicating with nurses about care needs.
[2018-12-14 20:00] VITALS: BP 125/56
[2018-12-15] VITALS: BP 101/50
[2018-12-15] MEDS: ONDANSETRON HCL 4 MG/2 ML VIAL IVP PRN ×2 (06:17→16:06)
[2018-12-15] MEDS: HYDROMORPHONE 1 MG/1 ML AMP IVP PRN ×2 (06:18→16:05)
[2018-12-15 08:12] VITALS: BP 98/43
--- NOTE | 2018-12-15 09:33 | NUR ---
f/u DCP Sw met with pt and daughter and grand daughter at bedside. Pt reports that she is feeling better. Family informed that we need to know by today what dc plan is so we can make arrangements. Daughter in recliner, covered her head with blanket, grand daughter stated that family has not decided but are leaning towards home. Informed family and pt that we have had dc orders since Thursday, and today is day we need decision so arrangements can be made. Sw informed Karol @ [facility] who will f/u with family. Seferino, MIKE and nurse Brewer made aware of above
--- NOTE | 2018-12-15 13:33 | NUR ---
DCP: Home with [facility] Sw recd call from Karol At [facility]. She met with pt and family and they have decided to take pt home. Son Henrietta Teague signed OOHDNR. Karol taking it to Dr Fleming for signature and is ordering DME to be delivered. CM aware of dcp and will arrange ambulance transport.
--- NOTE | 2018-12-15 14:46 | NUR ---
CM Note: EMS faxed and arranged, primary nurse to call [facility] and call report once DME delivered at home. Primary nurse aware. CM to cont to follow up.
--- NOTE | 2018-12-15 16:19 | NUR ---
CM Note: [facility] approved DME delivered in pt's house CM Spoke to [facility], DME delivered in pt's house. Pt safe to DC via EMS. EMS arranged and faxed, primary nurse to call [facility] once pt ready to DC and give report to [facility]. Primary nurse Osman and Charge nurse Tricia made aware. CM to cont to follow up.
--- NOTE | 2018-12-15 19:28 | NUR ---
Pt d/c update Pt going home with hospice, pt to be transported by EMS, EMS here to pick pt, pt off the floor at this time home with hospice. No further orders.
== END 2018-12-15 19:05 | disposition hospice, home (50) | DRG 871 ==
LOC: EDH 16:57 → EDHIP 20:00 → 3AH 20:16 → 2DH 12-08 15:21 → 2BH 12-08 16:04 → 3BH 12-10 21:35
PROVIDERS: ADMIT Internal Medicine Hematology & Oncology; ATTEND Internal Medicine Hematology & Oncology
PROC: 30233R1 Transfusion of Nonautologous Platelets into Peripheral Vein, Percutaneous Approach (ICD-10-PCS; principal; 2018-12-10)
DX: A41.9 Sepsis, unspecified organism (principal); R65.21 Severe sepsis with septic shock; E43 Unspecified severe protein-calorie malnutrition; I50.33 Acute on chronic diastolic (congestive) heart failure; N18.6 End stage renal disease; N17.9 Acute kidney failure, unspecified; C21.0 Malignant neoplasm of anus, unspecified; N13.30 Unspecified hydronephrosis; C18.9 Malignant neoplasm of colon, unspecified; C64.9 Malignant neoplasm of unspecified kidney, except renal pelvis; C77.9 Secondary and unspecified malignant neoplasm of lymph node, unspecified; C78.00 Secondary malignant neoplasm of unspecified lung; C78.7 Secondary malignant neoplasm of liver and intrahepatic bile duct; C79.51 Secondary malignant neoplasm of bone; I13.2 Hypertensive heart and chronic kidney disease with heart failure and with stage 5 chronic kidney disease, or end stage renal disease; D69.6 Thrombocytopenia, unspecified; I48.91 Unspecified atrial fibrillation; M19.90 Unspecified osteoarthritis, unspecified site; D64.9 Anemia, unspecified; D89.9 Disorder involving the immune mechanism, unspecified; I73.9 Peripheral vascular disease, unspecified; E86.0 Dehydration; I25.10 Atherosclerotic heart disease of native coronary artery without angina pectoris; K80.20 Calculus of gallbladder without cholecystitis without obstruction; R62.7 Adult failure to thrive; Z51.5 Encounter for palliative care; Z66 Do not resuscitate; Z68.25 Body mass index [BMI] 25.0-25.9, adult; Z95.810 Presence of automatic (implantable) cardiac defibrillator; Z95.0 Presence of cardiac pacemaker; Z92.3 Personal history of irradiation; Z92.21 Personal history of antineoplastic chemotherapy; Z86.718 Personal history of other venous thrombosis and embolism; Z85.048 Personal history of other malignant neoplasm of rectum, rectosigmoid junction, and anus; Z82.49 Family history of ischemic heart disease and other diseases of the circulatory system
CPT/HCPCS: 36415; 36430; 36600; 71045; 74176; 76700; 76770; 80048; 80053; 81001; 82150; 82803; 82948; 83605; 83690; 83735; 84100; 84443; 84550; 85025; 85027; 85060; 85610; 85730; 86850; 86900; 86901; 93005; 94640; 94664; A6250; G0378; J0171; J0282; J0692; J1100; J1160; J1170; J1200; J2370; J2405; J3475; J3480; J3490; J7030; J7060; P9034